=== PATIENT | female | born 1985 | race Caucasian/White ===

== ENCOUNTER 2017-07-09 12:55 | Emergency (ER) | payer OTHER ==
[~2017-07-09] VITALS: Ht 160 cm; Wt 74.4 kg
[~2017-07-09 12:55] MED LIST: ADVIL,NUPRIN,M200 MG PO; ALPRAZOLAM1 MG PO; AMBIEN10 MG PO; AMOXICILLIN875 MG PO; BUSPAR15 MG PO; BUSPIRONE HCL15 MG PO; CLONIDINE HCL0.1 MG PO; CONCERTA18 MG PO; CONCERTA27 MG PO; DIAZEPAM5 MG PO; DURAGESIC12 MCG TD; DURAGESIC25 MCG TD; ENDOCET 5-3251 EACH PO; FLEXERIL10 MG PO; FLUOXETINE HCL10 MG PO; FLUOXETINE HCL40 MG PO; INDOCIN25 MG PO; LIDODERM 5% P1 PATCH TD; LORAZEPAM0.5 MG PO; LYRICA150 MG PO; MEDROL DOSEPAK4 MG PO; MELATONIN10 M1 PO; MELATONIN10 M2 PO; METHYLPHENIDATE18 MG PO; NAPROSYN500 MG PO; NAPROXEN500 MG PO; PERCOCET 5/31 TABLET PO; PREDNISONE10 MG PO; PREDNISONE20 MG PO; PROZAC40 MG PO; SODIUM CHLORIDE1 G1 PO; TIZANIDINE HCL4 M1 PO; TIZANIDINE HCL4 MG PO; TYLENOL PM1 CAPLET PO; TYLENOL REGULA325 MG PO; ULTRAM50 MG PO; WOMEN'S DAILY1 EAC1 PO; XANAX0.5 MG PO; ZOLPIDEM TARTRA10 MG PO; [UNRECOGNIZED DRUG - OTHER]
[2017-07-09] MEDS ORDERED: KEFLEX500 MG PO (17:03)
[2017-07-09 18:12] VITALS: BP 106/71
== END 2017-07-09 18:14 | disposition home or self-care (01) ==
LOC: EME 12:55
DX: S06.0X9A Concussion with loss of consciousness of unspecified duration, initial encounter (principal); W01.198A Fall on same level from slipping, tripping and stumbling with subsequent striking against other object, initial encounter; S91.201A Unspecified open wound of right great toe with damage to nail, initial encounter; W22.8XXA Striking against or struck by other objects, initial encounter; R07.9 Chest pain, unspecified; M54.9 Dorsalgia, unspecified; Z87.891 Personal history of nicotine dependence
CPT/HCPCS: 70450; 71020; 93005; 99281; 99284; J2270; J2405; J7030

== ENCOUNTER 2017-08-14 08:24 | Emergency (ER) | payer OTHER ==
[~2017-08-14] VITALS: Ht 162.6 cm; Wt 80.1 kg
[~2017-08-14 08:24] MED LIST changes: +KEFLEX500 MG PO
[2017-08-14] MEDS ORDERED: ALPRAZOLAM2 MG PO (09:06)
[2017-08-14] MEDS ORDERED: DESYREL100 MG PO (09:06)
[2017-08-14 09:12] LABS: HEMATOCRIT 36.3 % (36.0-46.0); MCH 29.1 PG (29.0-34.0); MCHC 32.8 G/DL (30.0-36.0); MCV 88.8 FL (83-99); MEAN PLAT.VOLUME 11.6 uM^3 (9.5-12.4); PLATELET COUNT 180 K/uL (156-360); RBC DIS.WIDTH-CV 12.6 % (11.8-14.6); RBC DIS.WIDTH-SD 41.1 % (39-53); RED BLOOD COUNT 4.09 M/uL (3.80-5.20); WHITE BLOOD COUNT 10.3 K/uL (4.1-10.2)
[2017-08-14 09:22] LABS: CHLORIDE 106 mEq/L (99-109); POTASSIUM 3.9 mEq/L (3.7-5.4); SODIUM 138 mEq/L (136-147)
[2017-08-14 09:24] LABS: ADD MIUA? YES; BILIRUBIN NEGATIVE; BLOOD NEGATIVE; COLOR STRAW ((YELLOW)); GLUCOSE (STRIP) NEGATIVE; KETONES NEGATIVE; LEUKOCYTES SMALL; NITRITE NEGATIVE; PROTEIN (STRIP) NEGATIVE; SPECIFIC GRAVITY 1.013 (1.000-1.030); UROBILINOGEN 0.2 MG/DL (0.2-1.0)
[2017-08-14 09:24] LABS: GLUCOSE 89 mg/dL (70-99)
[2017-08-14 09:25] LABS: ANION GAP 9 MEQ/L (2-14)
[2017-08-14 09:26] LABS: TOTAL BILIRUBIN 0.4 mg/dL (0.0-1.0)
[2017-08-14 09:27] LABS: ALKALINE PHOSPHATASE 66 IU/L (3-129)
[2017-08-14 09:28] LABS: GFR ESTIMATE (CALCULATED) > 59 mL/min/
[2017-08-14 09:29] LABS: UREA NITROGEN (BUN) 11 mg/dL (9-23)
[2017-08-14 09:34] LABS: TROP-I INTERPRETATION NEGATIVE; TROPONIN-I < 0.01 ng/mL (0.0-0.30)
[2017-08-14 09:35] LABS: BACTERIA NONE SEEN /HPF; EPITHELIAL CELLS RARE /HPF; MUCUS NONE SEEN /LPF; RED BLOOD CELLS 0-5 /HPF (0-5); UCUL ADDED? NO; WHITE BLOOD CELLS 0-5 /HPF (0-5)
[2017-08-14 09:41] LABS: AMPHETAMINE NEGATIVE (500 ng/mL); BARBITURATES NEGATIVE (200 ng/mL); BENZODIAZEPINES PRESUMPTIVE POSITIVE (150 ng/mL); COCAINE NEGATIVE (150 ng/mL); INTERNAL CONTROLS VALID? YES; METHADONE NEGATIVE (200 ng/mL); METHAMPHETAMINE NEGATIVE (500 ng/mL); OPIATES (MORPHINE) NEGATIVE (100 ng/mL); OXYCODONE NEGATIVE (100 ng/mL); PHENCYCLIDINE NEGATIVE (25 ng/mL); PROPOXYPHENE NEGATIVE (300 ng/mL); THC CANNABINOIDS NEGATIVE (50 ng/mL); TRICYCLIC ANTIDEPRESSANTS NEGATIVE (300 ng/mL)
[2017-08-14 09:42] LABS: ADD MEDTOX COMMENT Y
[2017-08-14 10:29] LABS: BENZODIAZEPINES, URINE SCREEN POSITIVE (200 ng/mL)
[2017-08-14 12:15] VITALS: BP 98/79
== END 2017-08-14 12:15 | disposition home or self-care (01) ==
LOC: EME 08:24
PROVIDERS: Emergency Medicine
DX: S09.90XA Unspecified injury of head, initial encounter (principal); R29.6 Repeated falls; F13.90 Sedative, hypnotic, or anxiolytic use, unspecified, uncomplicated; K21.9 Gastro-esophageal reflux disease without esophagitis; G89.29 Other chronic pain; M54.9 Dorsalgia, unspecified; Z87.891 Personal history of nicotine dependence
CPT/HCPCS: 70450; 80053; 81003; 84484; 84999; 85027; 93005; 99281; 99285; J7030